=== PATIENT | male | born 1955 | race Caucasian/White ===

== ENCOUNTER 2017-10-05 04:30 | Inpatient (IN) | payer OTHER ==
[~2017-10-05] VITALS: Ht 177.8 cm; Wt 68.0 kg
[~2017-10-05 04:30] MED LIST: CATAFLAN PO; CLONAZEPAM2 MG PO; LIPITOR20 MG PO
[2017-10-05] MEDS ORDERED: CLONAZEPAM2 MG PO (09:54)
[2017-10-05] MEDS ORDERED: PERCOCET 5-3251 EACH PO (09:54)
[2017-10-05] MEDS ORDERED: COLACE100 MG PO (09:54)
== END 2017-10-06 14:51 | disposition home or self-care (01) | DRG 472 ==
LOC: O/R 04:30 → PED 04:30 → SURH 07:00 → PED 11:32 → SURH 12:09 → PED 10-06 14:51
PROVIDERS: Orthopaedic Surgery Orthopaedic Surgery of the Spine
PROC: 0RG20A0 Fusion of 2 or more Cervical Vertebral Joints with Interbody Fusion Device, Anterior Approach, Anterior Column, Open Approach (ICD-10-PCS; 2017-10-05)
PROC: 0RT30ZZ Resection of Cervical Vertebral Disc, Open Approach (ICD-10-PCS; principal; 2017-10-05 07:00)
DX: M47.12 Other spondylosis with myelopathy, cervical region (principal); M50.023 Cervical disc disorder at C6-C7 level with myelopathy